=== PATIENT | male | born 1960 | race Caucasian/White ===

== ENCOUNTER 2020-11-30 00:35 | Emergency (ER) | payer MEDICAID ==
[~2020-11-30] VITALS: Ht 188 cm; Wt 84.1 kg
[~2020-11-30 00:35] MED LIST: NORCO10T PO
[2020-11-30 00:44] VITALS: BP 138/81
[2020-11-30] MEDS ORDERED: DEXA6TAB6 PO (01:39)
[2020-11-30] MEDS ORDERED: DEXAMETHASONE 6 MG TABLET PO ONE (01:40)
[2020-11-30] MEDS ORDERED: dexamethasone 4mg tablet PO ONE (01:40)
== END 2020-11-30 02:25 | disposition left against medical advice (07) ==
LOC: ER 00:35
DX: J20.9 Acute bronchitis, unspecified (principal); F17.210 Nicotine dependence, cigarettes, uncomplicated; Z88.8 Allergy status to other drugs, medicaments and biological substances; Z79.899 Other long term (current) drug therapy; Z20.822 Contact with and (suspected) exposure to COVID-19
CPT/HCPCS: 71045; 87635; 99284; C9803

== ENCOUNTER 2020-12-18 04:24 | Emergency (ER) | payer MEDICAID ==
[~2020-12-18] VITALS: Ht 188 cm; Wt 84.1 kg
[~2020-12-18 04:24] MED LIST changes: +DEXA6TAB6 PO
[2020-12-18 04:42] VITALS: BP 138/74
== END 2020-12-18 07:44 | disposition left against medical advice (07) ==
LOC: ER 04:25
DX: H57.13 Ocular pain, bilateral (principal); Z53.21 Procedure and treatment not carried out due to patient leaving prior to being seen by health care provider

== ENCOUNTER 2021-01-14 21:20 | Emergency (ER) | payer MEDICAID ==
[~2021-01-14] VITALS: Ht 188 cm; Wt 81.8 kg
[~2021-01-14 21:20] MED LIST changes: +LIDOcaine 1% w/EPI 1:100,000 30ml vial (MDV) ONE
[2021-01-14 21:25] VITALS: BP 154/98
--- NOTE | 2021-01-14 21:48 | NUR ---
having pt rinse out each eye using joshua lense with 500 ml each eye with ns.
--- NOTE | 2021-01-14 22:15 | NUR ---
pt unable to tolerate full amount but was able to flush each eye with 250ml ns
[2021-01-14] MEDS ORDERED: TETanus/Pertussis (Acell)/Diphther VAC/PF (Tdap-Adult) 0.5ml syringe IMVAC ONE (23:15)
[2021-01-14] MEDS ORDERED: CEPH250T PO (23:55)
[2021-01-14] MEDS ORDERED: bacitracin 15gm ointment TP ONE (23:55)
[2021-01-14] MEDS ORDERED: HYDR-3965 PO (23:55)
[2021-01-15] MEDS ORDERED: bacitracin 15gm ointment TP ONE
== END 2021-01-15 01:36 | disposition home or self-care (01) ==
LOC: ER 21:21
DX: S61.215A Laceration without foreign body of left ring finger without damage to nail, initial encounter (principal); S61.217A Laceration without foreign body of left little finger without damage to nail, initial encounter; F15.90 Other stimulant use, unspecified, uncomplicated; Z20.3 Contact with and (suspected) exposure to rabies; Z90.89 Acquired absence of other organs; Z90.49 Acquired absence of other specified parts of digestive tract; Z98.890 Other specified postprocedural states; Z56.0 Unemployment, unspecified; Z88.8 Allergy status to other drugs, medicaments and biological substances; Z79.2 Long term (current) use of antibiotics; Z79.899 Other long term (current) drug therapy; X58.XXXA Exposure to other specified factors, initial encounter; Y93.89 Activity, other specified; Y92.89 Other specified places as the place of occurrence of the external cause; Y99.8 Other external cause status
CPT/HCPCS: 12002; 73130; 90471; 90715; 99283; J3490

== ENCOUNTER 2021-02-11 02:39 | Emergency (ER) | payer MEDICAID ==
[~2021-02-11] VITALS: Ht 188 cm; Wt 65.6 kg
[~2021-02-11 02:39] MED LIST changes: +HYDR-3965 PO; -LIDOcaine 1% w/EPI 1:100,000 30ml vial (MDV) ONE
[2021-02-11 02:47] VITALS: BP 132/81
[2021-02-11] MEDS ORDERED: cephalexin 250mg capsule PO ONE (05:30)
[2021-02-11] MEDS ORDERED: ibuprofen tablet 400 MG TABLET PO ONE (05:30)
[2021-02-11] MEDS ORDERED: sulfamethoxazole/trimethoprim DS (800/160mg) tablet PO ONE (05:30)
[2021-02-11] MEDS ORDERED: SULF1TAB45 PO (05:32)
[2021-02-11] MEDS ORDERED: CEPH-585 PO (05:32)
== END 2021-02-11 05:39 | disposition home or self-care (01) ==
LOC: ER 02:39
DX: H60.12 Cellulitis of left external ear (principal); F15.90 Other stimulant use, unspecified, uncomplicated; F17.210 Nicotine dependence, cigarettes, uncomplicated; Z56.0 Unemployment, unspecified; Z90.49 Acquired absence of other specified parts of digestive tract; Z86.16 Personal history of COVID-19; Z88.8 Allergy status to other drugs, medicaments and biological substances; Z79.2 Long term (current) use of antibiotics; Z79.899 Other long term (current) drug therapy
CPT/HCPCS: 99284

== ENCOUNTER 2021-03-16 12:35 | Emergency (ER) | payer MEDICAID ==
[~2021-03-16] VITALS: Ht 188 cm; Wt 81.8 kg
[~2021-03-16 12:35] MED LIST changes: +CEPH-585 PO; -HYDR-3965 PO
[2021-03-16 12:41] VITALS: BP 130/73
[2021-03-16 14:15] LABS: BASOPHILS % (AUTO) 0.5 % (0-1); EOSINOPHILS # (AUTO) 0.2 X10'3 (0-0.9); EOSINOPHILS % (AUTO) 2.2 % (0-6); HEMATOCRIT 39.4 % (42.0-52.0); HEMOGLOBIN 12.9 g/dl (14.0-17.9); LYMPHOCYTES % (AUTO) 11.1 % (21-51); MEAN CORPUSCULAR HEMOGLOBIN 28.2 PG (27.0-31.0); MEAN CORPUSCULAR HGB CONC 32.8 g/dL (33.0-36.5); MEAN CORPUSCULAR VOLUME 86.2 FL (78-98); MEAN PLATELET VOLUME 7.8 FL (7.4-10.4); MONOCYTES # (AUTO) 0.8 X10'3 (0-0.9); MONOCYTES % (AUTO) 8.9 % (2-12); NEUTROPHILS # (AUTO) 6.9 X10'3 (1.8-7.7); NEUTROPHILS % (AUTO) 77.3 % (42-75); PLATELET COUNT 272 X10'3 (140-440); RED BLOOD COUNT 4.57 X10'6 (4.70-6.10); RED CELL DISTRIBUTION WIDTH 14.9 % (11.5-14.5)
[2021-03-16 14:39] LABS: ALANINE AMINOTRANSFERASE 25 U/L (12-78); ALBUMIN 3.6 G/DL (3.4-5.0); ALBUMIN/GLOBULIN RATIO 0.7 (1.1-1.5); ALKALINE PHOSPHATASE 128 IU/L (46-116); ANION GAP 9 (8-16); ASPARTATE AMINO TRANSFERASE 20 U/L (10-37); BILIRUBIN,TOTAL 0.7 MG/DL (0.1-1.0); BLOOD UREA NITROGEN 17 MG/DL (7-18); BUN/CREATININE RATIO 11.3 (5.4-32.0); CALCIUM 8.7 MG/DL (8.5-10.1); CHLORIDE 104 MMOL/L (99-107); GLUCOSE 114 MG/DL (70-104); POTASSIUM 3.4 MMOL/L (3.5-5.1); SODIUM 140 MMOL/L (135-145); TOTAL CARBON DIOXIDE 26.6 MMOL/L (24-32); TOTAL PROTEIN 8.5 G/DL (6.4-8.2); eGFR 47 ML/MIN
== END 2021-03-16 16:35 | disposition left against medical advice (07) ==
LOC: ER 12:35
DX: S61.211A Laceration without foreign body of left index finger without damage to nail, initial encounter (principal); Z53.21 Procedure and treatment not carried out due to patient leaving prior to being seen by health care provider; X58.XXXA Exposure to other specified factors, initial encounter; Y93.9 Activity, unspecified; Y92.9 Unspecified place or not applicable; Y99.9 Unspecified external cause status
CPT/HCPCS: 36415; 71045; 73140; 80053; 83605; 84145; 85025; 87040

== ENCOUNTER 2021-03-16 19:48 | Inpatient (IN) | payer MEDICAID ==
[~2021-03-16] VITALS: Ht 188 cm; Wt 81.8 kg
[2021-03-16] MEDS ORDERED: CefTRIAXone 2gm/D5W 50ml BAG 50 ML IV ONE (20:50)
[2021-03-16] MEDS ORDERED: normal saline 1000ML IV soln IV ONE (20:50)
[2021-03-16] MEDS ORDERED: vancomycin/NS 1 GM ADD-VANTAGE 250 ML IV ONE (20:50)
[2021-03-16 21:25] LABS: BASOPHILS # (AUTO) 0.1 X10'3 (0-0.2); BASOPHILS % (AUTO) 0.5 % (0-1); EOSINOPHILS # (AUTO) 0.2 X10'3 (0-0.9); EOSINOPHILS % (AUTO) 1.6 % (0-6); HEMATOCRIT 35.7 % (42.0-52.0); HEMOGLOBIN 12.1 g/dl (14.0-17.9); LYMPHOCYTES # (AUTO) 0.9 X10'3 (1.1-4.8); LYMPHOCYTES % (AUTO) 8.2 % (21-51); MEAN CORPUSCULAR HEMOGLOBIN 28.6 PG (27.0-31.0); MEAN CORPUSCULAR HGB CONC 33.9 g/dL (33.0-36.5); MEAN CORPUSCULAR VOLUME 84.4 FL (78-98); MEAN PLATELET VOLUME 8.4 FL (7.4-10.4); MONOCYTES # (AUTO) 0.9 X10'3 (0-0.9); MONOCYTES % (AUTO) 7.9 % (2-12); NEUTROPHILS # (AUTO) 9.4 X10'3 (1.8-7.7); NEUTROPHILS % (AUTO) 81.8 % (42-75); PLATELET COUNT 251 X10'3 (140-440); RED BLOOD COUNT 4.23 X10'6 (4.70-6.10); RED CELL DISTRIBUTION WIDTH 14.7 % (11.5-14.5); WHITE BLOOD COUNT 11.5 X10'3 (4.5-11.0)
[2021-03-16 21:50] LABS: ALANINE AMINOTRANSFERASE 24 U/L (12-78); ALBUMIN 3.4 G/DL (3.4-5.0); ALBUMIN/GLOBULIN RATIO 0.7 (1.1-1.5); ALKALINE PHOSPHATASE 120 IU/L (46-116); ANION GAP 4 (8-16); ASPARTATE AMINO TRANSFERASE 17 U/L (10-37); BILIRUBIN,TOTAL 0.6 MG/DL (0.1-1.0); BLOOD UREA NITROGEN 18 MG/DL (7-18); BUN/CREATININE RATIO 11.8 (5.4-32.0); CALCIUM 8.7 MG/DL (8.5-10.1); CHLORIDE 104 MMOL/L (99-107); CREATININE 1.53 MG/DL (0.60-1.10); GLUCOSE 110 MG/DL (70-104); POTASSIUM 3.4 MMOL/L (3.5-5.1); SODIUM 139 MMOL/L (135-145); TOTAL CARBON DIOXIDE 30.9 MMOL/L (24-32); eGFR 46 ML/MIN
[2021-03-16] MEDS ORDERED: HYDROcodone/acetaminophen 10/325mg tab PO ONE (22:15)
[2021-03-16] MEDS ORDERED: magnesium 2GM in 50ml NS 50 ML IV PRN (23:45)
[2021-03-16] MEDS ORDERED: potassium Cl 20 mEq SR tablet PO PRN ×2 (23:45)
[2021-03-16] MEDS ORDERED: morphine 2 MG/ML inj. syringe IV PRN (23:45)
[2021-03-16] MEDS ORDERED: magnesium 4gm in 100ml NS 100 ML IV PRN (23:45)
[2021-03-16] MEDS ORDERED: potassium CL 10mEq/100ml bag 100 ML IV PRN (23:45)
[2021-03-16] MEDS ORDERED: acetaminophen 325mg tablet PO PRN (23:45)
[2021-03-16] MEDS ORDERED: magnesium Cl slow-release 64mg tablet PO PRN (23:45)
[2021-03-16] MEDS ORDERED: ondansetron/PF 4mg/2ml inj IV PRN (23:45)
[2021-03-16] MEDS ORDERED: normal saline 1000ml 1,000 ML IV SCH (23:45)
[2021-03-16] MEDS ORDERED: HYDROcodone/acetaminophen 5mg/325mg tablet PO PRN (23:45)
[2021-03-17] MEDS ORDERED: cefepime 1GM/NS ADD-VANTAGE 100 ML IV ONE (00:25)
[2021-03-17 01:07] LABS: BASOPHILS % (AUTO) 0.3 % (0-1); EOSINOPHILS # (AUTO) 0.1 X10'3 (0-0.9); EOSINOPHILS % (AUTO) 1.6 % (0-6); HEMATOCRIT 35.2 % (42.0-52.0); HEMOGLOBIN 11.7 g/dl (14.0-17.9); LYMPHOCYTES # (AUTO) 1.2 X10'3 (1.1-4.8); LYMPHOCYTES % (AUTO) 13.4 % (21-51); MEAN CORPUSCULAR HEMOGLOBIN 28.2 PG (27.0-31.0); MEAN CORPUSCULAR HGB CONC 33.2 g/dL (33.0-36.5); MEAN CORPUSCULAR VOLUME 84.7 FL (78-98); MEAN PLATELET VOLUME 7.8 FL (7.4-10.4); MONOCYTES # (AUTO) 0.7 X10'3 (0-0.9); MONOCYTES % (AUTO) 8.1 % (2-12); NEUTROPHILS # (AUTO) 6.8 X10'3 (1.8-7.7); NEUTROPHILS % (AUTO) 76.6 % (42-75); PLATELET COUNT 236 X10'3 (140-440); RED BLOOD COUNT 4.15 X10'6 (4.70-6.10); RED CELL DISTRIBUTION WIDTH 15.1 % (11.5-14.5); WHITE BLOOD COUNT 8.9 X10'3 (4.5-11.0)
[2021-03-17 01:18] LABS: ANION GAP 7 (8-16); BLOOD UREA NITROGEN 15 MG/DL (7-18); BUN/CREATININE RATIO 12.1 (5.4-32.0); CALCIUM 8.1 MG/DL (8.5-10.1); CHLORIDE 104 MMOL/L (99-107); CREATININE 1.24 MG/DL (0.60-1.10); GLUCOSE 138 MG/DL (70-104); MAGNESIUM 1.9 MG/DL (1.5-2.4); POTASSIUM 3.4 MMOL/L (3.5-5.1); SODIUM 139 MMOL/L (135-145); TOTAL CARBON DIOXIDE 28.3 MMOL/L (24-32); eGFR 59 ML/MIN
--- NOTE | 2021-03-17 01:47 | NUR ---
pts iv infiltrated. at the time of infiltration, pt was getting iv fluids and vancomycin at the time. consulted with pharmacist Ayesha who states to watch for tissue sloughing or signs of tissue damage. Ayesha also states to apply cold compress, elevate and if tissue necrosis begins to contact pharmacy for topical nitroglycerin
--- NOTE | 2021-03-17 02:32 | NUR ---
pt is refusing another iv at this time
[2021-03-17 02:33] VITALS: BP 143/80
--- NOTE | 2021-03-17 03:08 | NUR ---
PT STATES HE WANTS TO LEAVE AND REFUSES ANOTHER IV. PT STATES UNDERSTANDING OF DANGER OF LEAVING UNIT WITHOUT ANY MORE TREATMENT.
--- NOTE | 2021-03-17 03:09 | NUR ---
PAGED HOSPITALIST REGARDING PT WISHING TO AMA
[2021-03-17] MEDS ORDERED: K and/or MAG REPLACEMENT MC SCH (08:00)
[2021-03-17] MEDS ORDERED: docusate sod 100mg capsule PO SCH (08:00)
== END 2021-03-17 04:25 | disposition left against medical advice (07) | DRG 383 ==
LOC: ER 19:49 → UNDOADMIN 23:53 → ED HOLD 23:53 → UNDODISIN 03-17 04:25
PROVIDERS: ADMIT Internal Medicine; ATTEND Internal Medicine
DX: L03.114 Cellulitis of left upper limb (principal); E87.6 Hypokalemia; F15.90 Other stimulant use, unspecified, uncomplicated; S61.211A Laceration without foreign body of left index finger without damage to nail, initial encounter; F17.210 Nicotine dependence, cigarettes, uncomplicated; S61.201A Unspecified open wound of left index finger without damage to nail, initial encounter; X58.XXXA Exposure to other specified factors, initial encounter; Z53.29 Procedure and treatment not carried out because of patient's decision for other reasons; Z90.49 Acquired absence of other specified parts of digestive tract; Z93.3 Colostomy status; Z56.0 Unemployment, unspecified; Z88.8 Allergy status to other drugs, medicaments and biological substances; Z79.899 Other long term (current) drug therapy; Y93.89 Activity, other specified; Y92.89 Other specified places as the place of occurrence of the external cause; Y99.8 Other external cause status
CPT/HCPCS: 36415; 80048; 80053; 83605; 83735; 84145; 85025; 87040; 96365; 96368; 99285; G0378; J0696; J3370; J7030

== ENCOUNTER → 2023-07-25 | Outpatient (CLI) | payer MEDICAID ==
[~2023-07-25] MED LIST changes: -CEPH-585 PO
[2023-07-25 11:25] LABS: ALANINE AMINOTRANSFERASE 27 U/L (12-78); ALBUMIN 2.6 G/DL (3.4-5.0); ALBUMIN/GLOBULIN RATIO 0.6 (1.1-1.5); ALKALINE PHOSPHATASE 129 IU/L (46-116); ANION GAP 7 (8-16); ASPARTATE AMINO TRANSFERASE 18 U/L (10-37); BILIRUBIN,TOTAL 0.3 MG/DL (0.1-1.0); BLOOD UREA NITROGEN 24 MG/DL (7-18); CALCIUM 8.6 MG/DL (8.5-10.1); CHLORIDE 107 MMOL/L (99-107); GLUCOSE 119 MG/DL (70-104); POTASSIUM 4.1 MMOL/L (3.5-5.1); SODIUM 143 MMOL/L (135-145); TOTAL PROTEIN 6.7 G/DL (6.4-8.2); VANCOMYCIN,TROUGH 11.7 ug/mL (10.0-20.0); eGFR 61 ML/MIN
== END | disposition home or self-care (01) ==
LOC: LAB 10:40
PROVIDERS: ATTEND Family Medicine
DX: A49.02 Methicillin resistant Staphylococcus aureus infection, unspecified site (principal); M86.9 Osteomyelitis, unspecified
CPT/HCPCS: 36415; 80053; 80202

== ENCOUNTER 2023-08-06 19:26 | Emergency (ER) | payer MEDICAID ==
[~2023-08-06] VITALS: Ht 172.7 cm; Wt 75.0 kg
[2023-08-06 19:34] VITALS: BP 124/63; PULSE 83; RESP 14; TEMP 98; O2SAT 94
== END 2023-08-06 20:03 | disposition home or self-care (01) ==
LOC: ER 19:26
DX: Z02.89 Encounter for other administrative examinations (principal); Z90.49 Acquired absence of other specified parts of digestive tract; F15.90 Other stimulant use, unspecified, uncomplicated; Z88.8 Allergy status to other drugs, medicaments and biological substances; Z79.899 Other long term (current) drug therapy; Z56.0 Unemployment, unspecified; Z98.890 Other specified postprocedural states
CPT/HCPCS: 99283